=== PATIENT | male | born 1955 | race Caucasian/White ===

== ENCOUNTER 2022-01-10 09:35 | Outpatient (CLI) | payer MEDICARE, SELFPAY ==
--- NOTE | 2022-01-10 09:54 | P.ANES_ITS ---
Anesthesia Charges Start Date/Time Anesthesia Start Date: 01/10/22 Anesthesia Start Time: 08:50 Stop Date/Time Anesthesia Stop Date: 01/10/22 Anesthesia Stop Time: 09:47 Summary Emergency: No
== END 2022-01-10 09:36 | disposition home or self-care (01) ==
LOC: OP CLINIC 09:37
PROVIDERS: PCP Family Medicine; Visit Provider Family Medicine
DX: K22.70 Barrett's esophagus without dysplasia (principal); K44.9 Diaphragmatic hernia without obstruction or gangrene; K31.89 Other diseases of stomach and duodenum; Z86.010 Personal history of colon polyps
CPT/HCPCS: 00813; 43239; 45378; 88305